=== PATIENT | male | born 1995 | race Two or more races ===

== ENCOUNTER 2018-09-29 09:13 | Emergency (ER) | payer SELFPAY ==
[~2018-09-29] VITALS: Ht 175.3 cm; Wt 69.9 kg
[2018-09-29 15:21] VITALS: BP 122/80
== END 2018-09-29 15:26 | disposition home or self-care (01) ==
LOC: ER 09:13
DX: S20.219A Contusion of unspecified front wall of thorax, initial encounter (principal); F12.10 Cannabis abuse, uncomplicated; V43.52XA Car driver injured in collision with other type car in traffic accident, initial encounter; Y93.89 Activity, other specified; Y99.8 Other external cause status; Y92.410 Unspecified street and highway as the place of occurrence of the external cause
CPT/HCPCS: 71046; 72040; 73000